=== PATIENT | male | born 1980 | race Two or more races ===

== ENCOUNTER 2018-07-19 12:52 | Emergency (ER) | payer OTHER ==
[~2018-07-19] VITALS: Ht 193 cm; Wt 76.7 kg
[2018-07-19] MEDS ORDERED: FISH OIL 1,0001 EAC4 (15:24)
[2018-07-19] MEDS ORDERED: KETO10TA2 PO (16:55)
[2018-07-19] MEDS ORDERED: SKELAXIN800 MG PO (16:55)
== END 2018-07-19 17:57 | disposition home or self-care (01) ==
LOC: ER 12:52
DX: M54.42 Lumbago with sciatica, left side (principal); M54.41 Lumbago with sciatica, right side

== ENCOUNTER 2018-07-22 10:07 | Outpatient (CLI) | payer OTHER ==
[~2018-07-22 10:07] MED LIST: FISH OIL 1,0001 EAC4; KETO10TA2 PO; SKELAXIN800 MG PO
== END 2018-07-22 11:08 | disposition home or self-care (01) ==
LOC: MRI 10:07
DX: M54.5 Low back pain (principal); M54.30 Sciatica, unspecified side
CPT/HCPCS: 72148

== ENCOUNTER 2018-11-27 12:33 | Outpatient (CLI) | payer OTHER | END 2018-11-27 12:41 | disposition home or self-care (01) | LOC: RAD 12:33 | DX: M25.551 Pain in right hip (principal); M25.552 Pain in left hip; M54.5 Low back pain ==

== ENCOUNTER 2018-11-27 14:02 | Outpatient (CLI) | payer OTHER | END 2018-11-27 14:13 | disposition home or self-care (01) | LOC: TOM 14:02 | DX: J32.0 Chronic maxillary sinusitis (principal) ==

== ENCOUNTER 2019-02-07 15:54 | Emergency (ER) | payer OTHER ==
[~2019-02-07] VITALS: Ht 182.9 cm; Wt 74.8 kg
[2019-02-07] MEDS ORDERED: ULTRACET PO (17:20)
[2019-02-07] MEDS ORDERED: KETO10TA2 PO (17:20)
== END 2019-02-07 18:41 | disposition home or self-care (01) ==
LOC: ER
DX: S52.352A Displaced comminuted fracture of shaft of radius, left arm, initial encounter for closed fracture (principal); S52.612A Displaced fracture of left ulna styloid process, initial encounter for closed fracture; M12.532 Traumatic arthropathy, left wrist; W18.39XA Other fall on same level, initial encounter; Y93.89 Activity, other specified; Y92.89 Other specified places as the place of occurrence of the external cause; Y99.8 Other external cause status